=== PATIENT | female | born 1940 | race Caucasian/White ===

== ENCOUNTER 2024-09-16 14:05 | Emergency (ER) | payer MEDICARE ==
[2024-09-16 15:27] LABS: ALT (SGPT) 8 U/L (8-55); AST (SGOT) 14 U/L (5-34); Albumin 3.4 g/dL (3.4-4.8); Alkaline Phosphatase 55 U/L (40-110); Anion Gap 13 mmol/L (10-20); BUN (Urea Nitrogen) 14 mg/dL (9.8-20.1); Bilirubin, Total 0.4 mg/dL (0.2-1.2); Calc. Creatinine Clearance 0 mL/min (70-130); Carbon Dioxide 25 mmol/L (23-31); Chloride 96 mmol/L (98-107); Estimated GFR 56; Glucose 84 mg/dL (83-110); Protein, Total 6.4 g/dL (5.8-8.1); Sodium 130 mmol/L (136-145)
[2024-09-16 15:31] LABS: Troponin I Less than 0.010 ng/mL (< 0.028)
[2024-09-16 15:41] LABS: #Basophils 0.07 10x3/uL (0.0-0.2); #Eosinophils 0.07 10x3/uL (0.0-0.5); #Monocytes 0.88 10x3/uL (0.0-1.1); #Neutrophils 4.98 10x3/uL (1.5-8.4); %Basophils 0.8 % (0.0-2.0); %Eosinophils 0.8 % (0.0-6.0); %Lymphocytes 30.3 % (18.0-47.0); %Monocytes 9.9 % (0.0-10.0); %Neutrophils 55.7 % (40.0-75.0); Hematocrit 39.5 % (34.9-44.5); Hemoglobin 13.4 g/dL (12.0-15.5); Mean Corpuscular HGB CONC 33.9 g/dL (32.0-36.0); Mean Corpuscular Hemoglobin 30.2 pg (27.0-33.0); Mean Corpuscular Volume 89.2 fL (81.6-98.3); Mean Platelet Volume 9.9 fL (7.4-10.4); Platelet Count 209 10x3/uL (150-450); RBC Distribution Width 13.7 % (11.5-14.5); Red Blood Cell (RBC) Count 4.43 10x6/uL (3.90-5.03); White Blood Cell (WBC) Count 8.9 10x3/uL (3.5-10.5)
== END 2024-09-16 18:42 | disposition home or self-care (01) ==
LOC: CSHERS 14:05
DX: I10 Essential (primary) hypertension (principal); E78.5 Hyperlipidemia, unspecified
CPT/HCPCS: 36415; 71045; 80053; 83880; 84484; 85025; 93005